=== PATIENT | male | born 1975 | race Caucasian/White ===

== ENCOUNTER 2017-03-22 10:21 | Emergency (ER) | payer SELFPAY ==
[~2017-03-22] VITALS: Ht 162.6 cm; Wt 65.8 kg
[2017-03-22 10:26] VITALS: BP 138/100
[2017-03-22 10:53] LABS: BASOPHILS % (AUTO) 0.3 % (0-1); EOSINOPHILS # (AUTO) 0.4 X10'3 (0-0.9); EOSINOPHILS % (AUTO) 3.1 % (0-6); HEMATOCRIT 40.1 % (42.0-52.0); HEMOGLOBIN 13.8 g/dl (14.0-17.9); LYMPHOCYTES # (AUTO) 1.8 X10'3 (1.1-4.8); LYMPHOCYTES % (AUTO) 13.7 % (21-51); MEAN CORPUSCULAR HEMOGLOBIN 34.5 PG (27.0-31.0); MEAN CORPUSCULAR HGB CONC 34.4 % (33.0-36.5); MEAN CORPUSCULAR VOLUME 100.4 FL (78-98); MEAN PLATELET VOLUME 6.2 FL (7.4-10.4); MONOCYTES # (AUTO) 1.7 X10'3 (0-0.9); MONOCYTES % (AUTO) 12.8 % (2-12); NEUTROPHILS # (AUTO) 9.2 X10'3 (1.8-7.7); NEUTROPHILS % (AUTO) 70.1 % (42-75); PLATELET COUNT 427 X10'3 (140-440); RED CELL DISTRIBUTION WIDTH 13.9 % (11.5-14.5); WHITE BLOOD COUNT 13.1 X10'3 (4.5-11.0)
[2017-03-22] MEDS ORDERED: azithromycin/NS 500mg/250ml 250 ML IV ONE (10:55)
[2017-03-22] MEDS ORDERED: albuterol 2.5 MG/3 ML nebule NEB ONE (10:55)
[2017-03-22] MEDS ORDERED: CefTRIAXone 2gm/NS 100ml IVPB 100 ML IV ONE (10:55)
[2017-03-22 11:05] LABS: PARTIAL THROMBOPLASTIN TIME 36 SECONDS (22-32)
[2017-03-22 11:11] LABS: ALANINE AMINOTRANSFERASE 20 U/L (12-78); ALBUMIN 2.6 G/DL (3.4-5.0); ALBUMIN/GLOBULIN RATIO 0.5 (1.1-1.5); ALKALINE PHOSPHATASE 89 IU/L (46-116); ANION GAP 11 (8-16); ASPARTATE AMINO TRANSFERASE 29 U/L (10-37); BILIRUBIN,TOTAL 0.3 MG/DL (0.1-1.0); BLOOD UREA NITROGEN 6 MG/DL (7-18); BUN/CREATININE RATIO 8.6 (5.4-32.0); CALCIUM 9.1 MG/DL (8.5-10.1); CHLORIDE 100 MMOL/L (99-107); GLUCOSE 108 MG/DL (70-104); POTASSIUM 3.2 MMOL/L (3.5-5.1); SODIUM 139 MMOL/L (135-145); TOTAL CARBON DIOXIDE 27.6 MMOL/L (24-32); TOTAL PROTEIN 7.8 G/DL (6.4-8.2); eGFR > 90 ML/MIN
[2017-03-22 11:41] LABS: TOTAL CELLS COUNTED 100
[2017-03-22 11:42] LABS: PLATELET ESTIMATE NORMAL; TOXIC GRANULATION 1+
[2017-03-22] MEDS ORDERED: levoFLOXACIN 250mg tablet PO ONE (12:15)
[2017-03-22] MEDS ORDERED: sulfamethoxazole/trimethoprim DS (800/160mg) tablet PO ONE (12:15)
[2017-03-22] MEDS ORDERED: traMADol 50MG tablet PO ONE (12:15)
[2017-03-22] MEDS ORDERED: SULF1TAB49 PO (12:19)
[2017-03-22] MEDS ORDERED: LEVO750T21 PO (12:19)
[2017-03-22] MEDS ORDERED: TRAM50TA PO (12:19)
== END 2017-03-22 13:02 | disposition left against medical advice (07) ==
LOC: ER 10:22
DX: A41.9 Sepsis, unspecified organism (principal); J18.9 Pneumonia, unspecified organism; Z88.6 Allergy status to analgesic agent
CPT/HCPCS: 36415; 71045; 80053; 84145; 84484; 85025; 85610; 85730; 93005; 94640; 94760; 99285; J0456; J0696; J7030

== ENCOUNTER 2017-04-18 18:00 | Outpatient (CLI) | payer MEDICAID, OTHER ==
[~2017-04-18 18:00] MED LIST: SULF1TAB49 PO; TRAM50TA PO
[2017-04-18 21:04] LABS: BASOPHILS # (AUTO) 0.1 X10'3 (0-0.2); BASOPHILS % (AUTO) 1.1 % (0-1); EOSINOPHILS # (AUTO) 1.2 X10'3 (0-0.9); EOSINOPHILS % (AUTO) 13.2 % (0-6); HEMATOCRIT 35.3 % (42.0-52.0); HEMOGLOBIN 11.9 g/dl (14.0-17.9); LYMPHOCYTES # (AUTO) 2.5 X10'3 (1.1-4.8); LYMPHOCYTES % (AUTO) 28.2 % (21-51); MEAN CORPUSCULAR HEMOGLOBIN 33.8 PG (27.0-31.0); MEAN CORPUSCULAR HGB CONC 33.8 % (33.0-36.5); MEAN CORPUSCULAR VOLUME 100.1 FL (78-98); MEAN PLATELET VOLUME 8.1 FL (7.4-10.4); MONOCYTES # (AUTO) 0.8 X10'3 (0-0.9); MONOCYTES % (AUTO) 8.6 % (2-12); NEUTROPHILS # (AUTO) 4.4 X10'3 (1.8-7.7); NEUTROPHILS % (AUTO) 48.9 % (42-75); PLATELET COUNT 339 X10'3 (140-440); RED BLOOD COUNT 3.53 X10'6 (4.70-6.10); RED CELL DISTRIBUTION WIDTH 14.1 % (11.5-14.5)
[2017-04-18 21:28] LABS: ALANINE AMINOTRANSFERASE 19 U/L (12-78); ALBUMIN/GLOBULIN RATIO 0.6 (1.1-1.5); ALKALINE PHOSPHATASE 60 IU/L (46-116); ANION GAP 14 (8-16); ASPARTATE AMINO TRANSFERASE 30 U/L (10-37); BILIRUBIN,TOTAL 0.2 MG/DL (0.1-1.0); BLOOD UREA NITROGEN 6 MG/DL (7-18); BUN/CREATININE RATIO 8.6 (5.4-32.0); C-REACTIVE PROTEIN 1.18 MG/DL (0.0-0.5); CALCIUM 8.5 MG/DL (8.5-10.1); CHLORIDE 104 MMOL/L (99-107); GLUCOSE 75 MG/DL (70-104); SODIUM 143 MMOL/L (135-145); TOTAL CARBON DIOXIDE 24.8 MMOL/L (24-32); TOTAL PROTEIN 7.9 G/DL (6.4-8.2); eGFR > 90 ML/MIN
[2017-04-18 21:34] LABS: POTASSIUM 3.7 MMOL/L (3.5-5.1)
== END 2017-04-18 23:59 | disposition home or self-care (01) ==
LOC: LAB SPEC 18:00
PROVIDERS: ATTEND Internal Medicine Infectious Disease
DX: A49.01 Methicillin susceptible Staphylococcus aureus infection, unspecified site (principal); M86.9 Osteomyelitis, unspecified
CPT/HCPCS: 36415; 80053; 85025; 85651; 86140

== ENCOUNTER 2017-12-16 08:29 | Day surgery (SDC) | payer MEDICAID ==
[2017-12-12 14:53] LABS: BASOPHILS # (AUTO) 0.1 X10'3 (0-0.2); BASOPHILS % (AUTO) 1.4 % (0-1); EOSINOPHILS # (AUTO) 0.5 X10'3 (0-0.9); EOSINOPHILS % (AUTO) 7.6 % (0-6); LYMPHOCYTES # (AUTO) 2.2 X10'3 (1.1-4.8); LYMPHOCYTES % (AUTO) 34.1 % (21-51); MEAN CORPUSCULAR HEMOGLOBIN 35.1 PG (27.0-31.0); MEAN CORPUSCULAR HGB CONC 34.3 % (33.0-36.5); MEAN CORPUSCULAR VOLUME 102.4 FL (78-98); MEAN PLATELET VOLUME 6.5 FL (7.4-10.4); MONOCYTES # (AUTO) 0.8 X10'3 (0-0.9); MONOCYTES % (AUTO) 11.9 % (2-12); NEUTROPHILS # (AUTO) 2.9 X10'3 (1.8-7.7); PRE OP HEMATOCRIT 43.8 % (42.0-52.0); PRE OP PLATELET COUNT 245 X10'3 (140-440); RED BLOOD COUNT 4.27 X10'6 (4.70-6.10); RED CELL DISTRIBUTION WIDTH 14.2 % (11.5-14.5)
[2017-12-12 15:11] LABS: ALBUMIN 3.9 G/DL (3.4-5.0); ALBUMIN/GLOBULIN RATIO 0.9 (1.1-1.5); ALKALINE PHOSPHATASE 75 IU/L (46-116); BLOOD UREA NITROGEN 5 MG/DL (7-18); BUN/CREATININE RATIO 6.4 (5.4-32.0); CALCIUM 8.6 MG/DL (8.5-10.1); CHLORIDE 102 MMOL/L (99-107); CREATININE 0.78 MG/DL (0.60-1.10); PRE OP ANION GAP 15 (8-16); PRE OP BILIRUB, TOTAL 0.3 MG/DL (0.0-1.0); PRE OP GLUCOSE 156 MG/DL (70-104); PRE OP POTASSIUM 3.7 MMOL/L (3.4-5.1); PRE OP SODIUM 143 MMOL/L (135-145); TOTAL CARBON DIOXIDE 25.8 MMOL/L (24-32); TOTAL PROTEIN 8.1 G/DL (6.4-8.2); eGFR > 90 ML/MIN
[2017-12-12 15:12] LABS: CLARITY,URINE CLEAR (Clear); COLOR,URINE YELLOW (Yellow); GLUCOSE, URINE NEGATIVE (Neg); KETONES,URINE TRACE mg/dl (Neg); LEUKOCYTE ESTERASE ,URINE NEGATIVE (Neg); NITRITES, URINE NEGATIVE (Neg); OCCULT BLOOD,URINE TRACE-INTACT (Neg); PROTEIN,URINE TRACE mg/dl (Neg); UROBILINOGEN,URINE 0.2 E.U/dL (0.2-1.0)
[2017-12-12 15:13] LABS: PRE OP ALT 139 U/L (30-65)
[2017-12-12 15:15] LABS: PRE OP AST 251 U/L (10-37)
[2017-12-12 15:16] LABS: UA COLLECTION TYPE NON-SPECIFIED
[2017-12-12 15:18] LABS: BACTERIA,URINE NONE SEEN /HPF (Neg); RBC,URINE NONE SEEN /HPF (0-2); WBC,URINE 0-4 /HPF (0-4)
[2017-12-12 15:19] LABS: CAL OXALATE CRYSTALS 1+ /HPF (NEGATIVE); MUCUS STRANDS MODERATE /LPF (Neg); SQUAMOUS EPITHELIAL CELL,UR NONE SEEN /LPF (FEW)
[2017-12-16] VITALS (8 sets, daily range): BP systolic 114–145; BP diastolic 66–94
[~2017-12-16] VITALS: Ht 162.6 cm; Wt 60.0 kg
[~2017-12-16 08:29] MED LIST changes: +NO HOME MEDS; -SULF1TAB49 PO; -TRAM50TA PO; +cefazolin/dext.iso 2gm/100 ML IV ONE; +famotidine 20mg tablet PO ONE; +ringers solution, lacted 1,000 ML IV SCH
[2017-12-16] MEDS ORDERED: LIDOcaine 1% (10mg/ml) 2ml vial ONE (08:57)
[2017-12-16 09:57] LABS: ALBUMIN 4.2 G/DL (3.4-5.0); ALBUMIN/GLOBULIN RATIO 0.9 (1.1-1.5); ALKALINE PHOSPHATASE 74 IU/L (46-116); BLOOD UREA NITROGEN 5 MG/DL (7-18); BUN/CREATININE RATIO 6.4 (5.4-32.0); CALCIUM 8.6 MG/DL (8.5-10.1); CHLORIDE 96 MMOL/L (99-107); CREATININE 0.78 MG/DL (0.60-1.10); PRE OP ANION GAP 17 (8-16); PRE OP BILIRUB, TOTAL 0.7 MG/DL (0.0-1.0); PRE OP GLUCOSE 81 MG/DL (70-104); PRE OP POTASSIUM 4.1 MMOL/L (3.4-5.1); PRE OP SODIUM 138 MMOL/L (135-145); TOTAL CARBON DIOXIDE 24.8 MMOL/L (24-32); TOTAL PROTEIN 8.8 G/DL (6.4-8.2); eGFR > 90 ML/MIN
[2017-12-16 10:06] LABS: PRE OP ALT 128 U/L (30-65); PRE OP AST 188 U/L (10-37)
[2017-12-16] MEDS ORDERED: BUPIVAcaine/PF 2.5mg/ml (0.25%) 10ml vial ONE (11:03)
[2017-12-16] MEDS ORDERED: sevoflurane 250ml liquid IH ONE (11:16)
[2017-12-16] MEDS ORDERED: midazolam 2 mg/2 ml injection ONE ×2 (11:21→11:22)
[2017-12-16] MEDS ORDERED: fentaNYL/PF 50MCG/1 ML 2ML syringe ONE (11:21)
[2017-12-16] MEDS ORDERED: propofol inj 20 ML IV ONE (11:25)
[2017-12-16] MEDS ORDERED: ringers solution, lacted 1,000 ML IV SCH (12:00)
[2017-12-16] MEDS ORDERED: ondansetron/PF 4mg/2ml inj IV PRN (12:00)
[2017-12-16] MEDS ORDERED: proCHLORperazine 10 MG/2 ml inj IV PRN (12:00)
[2017-12-16] MEDS ORDERED: morphine 4 MG/ML inj SYRINge IV PRN ×2 (12:00)
[2017-12-16] MEDS ORDERED: meperidine/PF 25mg/ml syringe IV PRN ×3 (12:00)
== END 2017-12-16 13:35 | disposition home or self-care (01) ==
LOC: PAS 08:29
PROVIDERS: ATTEND Surgery
DX: L72.11 Pilar cyst (principal); I45.81 Long QT syndrome; F12.90 Cannabis use, unspecified, uncomplicated; G43.909 Migraine, unspecified, not intractable, without status migrainosus; Z72.89 Other problems related to lifestyle; Z79.2 Long term (current) use of antibiotics; Z79.891 Long term (current) use of opiate analgesic; Z88.5 Allergy status to narcotic agent; Z98.890 Other specified postprocedural states; Z79.899 Other long term (current) drug therapy
CPT/HCPCS: 11422; 11426; 36415; 80053; 81001; 85025; 87070; 87075; 87102; 93005; A6449; J0690; J2250; J2704; J3010; J3490; A6446; A7000; J7120

== ENCOUNTER 2021-09-12 07:33 | Day surgery (SDC) | payer MEDICAID ==
[~2021-09-12] VITALS: Ht 162.6 cm; Wt 62.6 kg
[~2021-09-12 07:33] MED LIST changes: -cefazolin/dext.iso 2gm/100 ML IV ONE; -famotidine 20mg tablet PO ONE; -ringers solution, lacted 1,000 ML IV SCH
[2021-09-12 07:46] VITALS: BP 160/108
[2021-09-12] MEDS ORDERED: CARV12.545 PO (08:19)
[2021-09-12] MEDS ORDERED: OMEP40CA21 PO (08:19)
[2021-09-12] MEDS ORDERED: FURO20TA4 PO (08:19)
[2021-09-12] MEDS ORDERED: albumin 25% 100mL bottle x 1 IV PRN (08:20)
[2021-09-12] MEDS ORDERED: LIDOcaine 1% 30ml preserv. free vial SQ STA (08:47)
[2021-09-12 09:35] VITALS: BP 160/108
== END 2021-09-12 09:35 | disposition home or self-care (01) ==
LOC: SSTAY O 07:33
PROVIDERS: ATTEND Preventive Medicine Aerospace Medicine
DX: R18.8 Other ascites (principal); I10 Essential (primary) hypertension; Z88.6 Allergy status to analgesic agent; Z88.8 Allergy status to other drugs, medicaments and biological substances; Z79.899 Other long term (current) drug therapy; Z98.890 Other specified postprocedural states
CPT/HCPCS: 76705